=== PATIENT | female | born 1965 | race Caucasian/White ===

== ENCOUNTER 2017-11-22 08:51 | Day surgery (SDC) | payer OTHER ==
[~2017-11-22 08:51] MED LIST: Lactated Ringers 1,000 ML IV SCH; Lidocaine 2% 5 ML SDV ONE; Propofol 200 MG/20 ML SDV ONE; Sodium Chloride 0.9% 10 ML Syringe FLUSH PRN; Sodium Chloride 0.9% 2.5 ML Syringe FLUSH PRN; fentaNYL 100 MCG/2 ML SDV ONE
--- NOTE | 2017-11-22 09:30 | PCM.PREANE ---
Preanesthetic Assessment - Anesthesia/Transfusion/Family Hx Anesthesia History: Prior Anesthesia Without Reaction Family History of Anesthesia Reaction: No Transfusion History: No Prior Transfusion(s) - Review of Systems General: No Symptoms Pulmonary: No Symptoms Cardiovascular: No Symptoms Gastrointestinal: No Symptoms Neurological: No Symptoms Other: Reports: None - Physical Assessment NPO Status Date: 11/21/17 O2 Sat by Pulse Oximetry: 96 Respiratory Rate: 16 Vital Signs: Last Vital Signs Temp 36.3 C 11/22/17 09:11 Pulse 70 11/22/17 09:11 Resp 16 11/22/17 09:11 BP 155/82 H 11/22/17 09:11 Pulse Ox 96 11/22/17 09:11 Height: 1.57 m Weight: 85.275 kg ASA Class: 2 Mental Status: Alert & Oriented x3 Dentition: Reports: Normal Dentition ROM/Head Extension: Full Lungs: Clear to Auscultation, Normal Respiratory Effort Cardiovascular: Regular Rate, Regular Rhythm - Allergies Allergies/Adverse Reactions: Allergies Allergy/AdvReac Type Severity Reaction Status Date / Time morphine Allergy Rash Verified 11/19/17 08:49 - Anesthesia Plan Pre-Op Medication Ordered: None - Acknowledgements Anesthesia Type Planned: MAC Pt an Appropriate Candidate for the Planned Anesthesia: Yes Alternatives and Risks of Anesthesia Discussed w Pt/Guardian: Yes Pt/Guardian Understands and Agrees with Anesthesia Plan: Yes Additional Comments: PMH: PCOS PreAnesthesia Questionnaire HEENT History: Reports: Other (See Below) Other HEENT History: wears glasses, has lower permanent dental bridge Cardiovascular History: Reports: None Respiratory History: Reports: None Gastrointestinal History: Reports: Other (See Below) Other Gastrointestinal History: occasional heartburn- takes OTC Tums 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: Musculoskeletal History: Reports: Fracture Other Musculoskeletal History: hx of fx arm as a child Neurological History: Reports: Other (See Below) Other Neuro History: hx of motion sickness Psychiatric History: Reports: None Endocrine/Metabolic History: Reports: Obesity/BMI 30+ Hematologic History: Reports: None Immunologic History: Reports: None Oncologic (Cancer) History: Reports: None Dermatologic History: Reports: None - Past Surgical History Head Surgeries/Procedures: Reports: None HEENT Surgical History: Reports: Tonsillectomy Female Surgical History: Reports: Section - SUBSTANCE USE Smoking Status *Q: Never Smoker Recreational Drug Use History: No - HOME MEDS Home Medications: Home Meds . [No Known Home Meds] 11/19/17 [History] - CURRENT (IN HOUSE) MEDS Current Meds: Current Medications Lactated Ringer's (Ringers, Lactated) 1,000 mls @ 125 mls/hr IV ASDIRECTED VICKI Last Admin: 11/22/17 09:12 Dose: 125 mls/hr Sodium Chloride (Saline Flush) 10 ml FLUSH ASDIRECTED PRN PRN Reason: Keep Vein Open Sodium Chloride (Saline Flush) 2.5 ml FLUSH ASDIRECTED PRN PRN Reason: Keep Vein Open Sodium Chloride (Saline Flush) 10 ml FLUSH ASDIRECTED PRN PRN Reason: Keep Vein Open Sodium Chloride (Saline Flush) 2.5 ml FLUSH ASDIRECTED PRN PRN Reason: Keep Vein Open Discontinued Medications Fentanyl (Sublimaze) Confirm Administered Dose 100 mcg .ROUTE .STK-MED ONE Stop: 11/22/17 06:52 Lidocaine (Xylocaine-Mpf 2%) Confirm Administered Dose 5 ml .ROUTE .STK-MED ONE Stop: 11/22/17 06:52 Propofol (Diprivan 20 Ml) Confirm Administered Dose 400 mg .ROUTE .STK-MED ONE Stop: 11/22/17 06:52
[2017-11-22] MEDS ORDERED: Glycopyrrolate 0.2 MG/ML SDV ONE (09:47)
--- NOTE | 2017-11-22 10:34 | PCM48HPAN ---
Post Anesthesia Note - EVALUATION WITHIN 48HRS OF ANESTHETIC Vital Signs in Normal Range: Yes Patient Participated in Evaluation: Yes Respiratory Function Stable: Yes Airway Patent: Yes Cardiovascular Function Stable: Yes Hydration Status Stable: Yes Pain Control Satisfactory: Yes Nausea and Vomiting Control Satisfactory: Yes Mental Status Recovered: Yes Resp Rate: 12
--- NOTE | 2017-11-22 10:34 | PCM.POSTAN ---
POST ANESTHESIA ASSESSMENT - MENTAL STATUS Mental Status: Alert, Oriented - RESPIRATORY Respiratory Status: Respiratory Rate WNL, Airway Patent, O2 Saturation Stable - CARDIOVASCULAR CV Status: Pulse Rate WNL, Blood Pressure Stable - GASTROINTESTINAL GI Status: No Symptoms - POST OP HYDRATION Hydration Status: Adequate & Stable
--- NOTE | 2017-11-22 12:48 | PCM.OPNOTE ---
- General Post-Op/Procedure Note Date of Surgery/Procedure: 11/22/17 Operative Procedure(s): Screening colonoscopy Findings: Diverticulosis of the sigmoid colon, sigmoid colon polyp, rectal polyp Pre Op Diagnosis: Screening colonoscopy Post-Op Diagnosis: Diverticulosis of sigmoid colon, rectal polyp, sigmoid colon polyp Anesthesia Technique: [facility] [place] Surgeon: Carmelina Silva Condition: Good Free Text/Narrative:: Intake & Output 11/21/17 11/22/17 11/22/17 22:59 06:59 14:59 Intake Total 900 Balance 900
--- NOTE | 2017-11-22 14:02 | OR ---
SURGEON: BRANT MONTENEGRO MD DATE OF PROCEDURE: 11/22/2017 PREOPERATIVE DIAGNOSIS: Screening colonoscopy. POSTOPERATIVE DIAGNOSES: 1. Diverticulosis. 2. Sigmoid colon polyp. 3. Rectal polyp. PROCEDURE PERFORMED: Screening colonoscopy. ANESTHESIA: MAC. INSTRUMENT USED: Olympus colonoscope. EXTENT OF EXAM: To the cecum. PREPARATION: Good. LIMITATIONS: None. INDICATION FOR EXAMINATION: The patient is a 52-year-old female, who presents for first time screening colonoscopy. We discussed the procedure, expected perioperative course, and risks including bleeding, infection, or damage to surrounding structures including perforation. The patient verbalized understanding and wishes to proceed. PROCEDURE IN DETAIL: The patient was brought to the endoscopy suite and placed in the left lateral decubitus position. A time-out was completed verifying the patient's name, age, date of , allergies, and procedure to be performed. Monitored anesthesia care was induced and continuous oxygen was provided via nasal cannula throughout the procedure. After adequate sedation was achieved, a digital rectal exam was performed. This exam was within normal limits. A well lubricated colonoscope was inserted in the rectum and advanced under direct visualization to the level of the cecum. The cecum was identified by both visual and anatomic landmarks. Photograph was taken of the cecal cap; however, I was unable to retroflex the scope within the cecum due to looping of the scope more proximally. The scope was then fully withdrawn while examining the color, texture, anatomy, and integrity of the mucosa from the cecum to the anal canal. The patient was found to have scattered diverticula within the sigmoid colon. A 1 to 2 mm sessile polyp was noted in the distal sigmoid colon. This was removed using a cold biopsy forceps. The scope was brought into the rectum. A pedunculated 2 to 3 mm polyp was found in the very proximal rectum. This was removed using in piecemeal fashion using a cold biopsy forceps. The scope was then retroflexed and the anal canal was visualized. This appeared normal and a photograph was taken. The scope was then straightened out and removed from the patient. Cecum to anus time was 10 minutes. The patient tolerated the procedure well and was taken to PACU in stable condition. ENDOSCOPIC DIAGNOSES: 1. Diverticulosis. 2. Sigmoid colon polyp. 3. Rectal polyp. RECOMMENDATIONS: Follow up in clinic in 2 weeks. MASSIEL BURNETT /[id number] MTDD
== END 2017-11-22 10:45 | disposition home or self-care (01) ==
LOC: MW.SDS 08:51
PROVIDERS: ATTEND Surgery
DX: Z12.11 Encounter for screening for malignant neoplasm of colon (principal); D12.8 Benign neoplasm of rectum; K63.5 Polyp of colon; K57.30 Diverticulosis of large intestine without perforation or abscess without bleeding; E66.9 Obesity, unspecified; Z68.34 Body mass index [BMI] 34.0-34.9, adult; Z88.5 Allergy status to narcotic agent; Z91.048 Other nonmedicinal substance allergy status
CPT/HCPCS: 45380; 81025; J2704; J3010; J3490; J7120

== ENCOUNTER 2018-04-07 08:43 | Emergency (ER) | payer OTHER, BC ==
[2018-04-07] MEDS ORDERED: Iopamidol 755 MG/ML 200 ML Multipack Bottle IVPUSH STA (10:16)
[2018-04-07] MEDS ORDERED: Ampicillin/Sulbactam Na 3 GM in Sodium Chloride 0.9% 100 ML IV ONE ×2 (11:27→11:40)
[2018-04-07] MEDS ORDERED: Sodium Chloride 0.9% 10 ML Syringe FLUSH PRN (11:27)
[2018-04-07] MEDS ORDERED: Sodium Chloride 0.9% 2.5 ML Syringe FLUSH PRN (11:27)
--- NOTE | 2018-04-07 11:28 | EDM.PDOC ---
ED HPI GENERAL MEDICAL PROBLEM - General Chief Complaint: Skin Complaint Stated Complaint: LEFT EYE SWOLLEN Time Seen by Provider: 04/07/18 08:46 Source of Information: Reports: Patient History Limitations: Reports: No Limitations - History of Present Illness INITIAL COMMENTS - FREE TEXT/NARRATIVE: History of present illness: []Patient has 4 days of right eye swelling that is progressively worsening. Patient denies any fevers, change in vision, difficulty moving her eyes or headache. She has been using Campho-Phenique and started an old prescription of amoxicillin for previous dental infection. None of which has been helping. Patient's pain is minimal but the swelling is increasing. Review of systems: As per history of present illness and below otherwise all systems reviewed and negative. Past medical history: As per history of present illness and as reviewed below otherwise noncontributory. Surgical history: As per history of present illness and as reviewed below otherwise noncontributory. Social history: No reported history of drug or alcohol abuse. Family history: As per history of present illness and as reviewed below otherwise noncontributory. Physical exam: General: Well developed, well nourished in NAD HEENT: Atraumatic, normocephalic, pupils reactive, negative for conjunctival pallor or scleral icterus, mucous membranes moist, throat clear, neck supple, nontender, trachea midline. Lungs: Clear to auscultation, breath sounds equal bilaterally, chest nontender. Heart: S1S2, regular, negative for clicks, rubs, or JVD. Abdomen: NABS, Soft, nondistended, nontender. Negative for masses or hepatosplenomegaly. Negative for costovertebral tenderness. Pelvis: Stable nontender. Genitourinary: Deferred. Rectal: Deferred. Extremities: Atraumatic, negative for cords or calf pain. Neurovascular unremarkable. Neuro: Awake, alert, oriented. Cranial nerves II through XII unremarkable. Cerebellum unremarkable. Motor and sensory unremarkable throughout. Exam nonfocal. Skin:warm and dry Diagnostics: CT maxillofacial with contrast shows right parotitis with periorbital cellulitis Therapeutics: Unasyn 3 g IV ED Course: 11:[address] Paredes from [facility] ENT service he recommended IV antibiotics here, Augmentin and gentamicin eyedrops as an outpatient with post follow-up if she is nontoxic. Impression: Periorbital cellulitis, right parotitis Prescriptions: Augmentin, gentamicin eyedrops as directed Plan: Start antibiotics today, follow-up with ENT or primary care tomorrow if you cannot get into the clinic return here for one check. Definitive disposition and diagnosis as appropriate pending reevaluation and review of above. right eye Pain Score (Numeric/FACES): 3 - Related Data Allergies Allergy/AdvReac Type Severity Reaction Status Date / Time morphine Allergy Rash Verified 04/07/18 08:54 Home Meds: Home Meds Amoxicillin/Clavulanate K [Augmentin 875-125 MG] 1 tab PO BID #20 tablet [Rx] Gentamicin [Gentak 0.3% Ophth Oint] 3.5 gm EYELF TID #1 tube 04/07/18 [Rx] Past Medical History HEENT History: Reports: Other (See Below) Other HEENT History: wears glasses, has lower permanent dental bridge Cardiovascular History: Reports: None Respiratory History: Reports: None Gastrointestinal History: Reports: Other (See Below) Other Gastrointestinal History: occasional heartburn- takes OTC Tums Genitourinary History: Reports: None 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: Musculoskeletal History: Reports: Fracture Other Musculoskeletal History: hx of fx arm as a child Neurological History: Reports: Other (See Below) Other Neuro History: hx of motion sickness Psychiatric History: Reports: None Endocrine/Metabolic History: Reports: Obesity/BMI 30+ Hematologic History: Reports: None Immunologic History: Reports: None Oncologic (Cancer) History: Reports: None Dermatologic History: Reports: None - Infectious Disease History Infectious Disease History: Reports: Chicken Pox, Other (See Below) Other Infectious Disease History: childhood - Past Surgical History Head Surgeries/Procedures: Reports: None HEENT Surgical History: Reports: Tonsillectomy Cardiovascular Surgical History: Reports: None Respiratory Surgical History: Reports: None GI Surgical History: Reports: None Female Surgical History: Reports: Section Endocrine Surgical History: Reports: None Neurological Surgical History: Reports: None Musculoskeletal Surgical History: Reports: None Oncologic Surgical History: Reports: None Dermatological Surgical History: Reports: None Social & Family History - Family History Family Medical History: Noncontributory - Tobacco Use Smoking Status *Q: Never Smoker Second Hand Smoke Exposure: No - Caffeine Use Caffeine Use: Reports: Coffee, Soda - Recreational Drug Use Recreational Drug Use: No ED ROS GENERAL - Review of Systems Review Of Systems: ROS reveals no pertinent complaints other than HPI. ED EXAM, SKIN/RASH Exam: See Below (See history of present illness) Course - Vital Signs Last Recorded V/S: Last Vital Signs Temp 97.5 F 04/07/18 12:37 Pulse 68 04/07/18 12:37 Resp 16 04/07/18 12:37 BP 150/86 H 04/07/18 12:37 Pulse Ox 99 04/07/18 12:37 - Orders/Labs/Meds Orders: Active Orders 24 hr Category Date Time Status Max Facial Sinus w Cont [CT] Stat Exams 04/07/18 09:10 Ordered CULTURE BLOOD [BC] Stat Lab 04/07/18 11:48 Received CULTURE BLOOD [BC] Stat Lab 04/07/18 11:58 Received Blood Culture x2 Reflex Set [OM.PC] Stat Oth 04/07/18 11:21 Ordered Saline Lock Insert [OM.PC] Stat Oth 04/07/18 11:27 Ordered Meds: Medications Discontinued Medications Generic Name Dose Route Start Last Admin Trade Name Freq PRN Reason Stop Dose Admin Ampicillin Sodium/Sulbactam 100 mls @ 200 mls/hr 04/07/18 11:27 04/07/18 11: 45 Sodium 3 gm/ Sodium Chloride IV 04/07/18 11:56 Not Given ONETIME ONE Ampicillin Sodium/Sulbactam 100 mls @ 200 mls/hr 04/07/18 11:40 04/07/18 11: 51 Sodium 3 gm/ Sodium Chloride IV 04/07/18 11:56 200 mls/hr ONETIME ONE Administration Iopamidol 75 ml 04/07/18 10:16 04/07/18 10:16 Isovue Multipack-370 (76%) IVPUSH 04/07/18 10:17 75 ml ONETIME STA Administration Sodium Chloride 10 ml 04/07/18 11:27 Saline Flush FLUSH ASDIRECTED PRN Keep Vein Open Sodium Chloride 2.5 ml 04/07/18 11:27 Saline Flush FLUSH ASDIRECTED PRN Keep Vein Open Departure - Departure Time of Disposition: 12:40 Disposition: Home, Self-Care 01 Condition: Good Clinical Impression: Periorbital cellulitis of left eye, Parotitis - Discharge Information *PRESCRIPTION DRUG MONITORING PROGRAM REVIEWED*: No *COPY OF PRESCRIPTION DRUG MONITORING REPORT IN PATIENT UMA: No Prescriptions: Amoxicillin/Clavulanate K [Augmentin 875-125 MG] 1 tab PO BID #20 tablet Gentamicin [Gentak 0.3% Ophth Oint] 3.5 gm EYELF TID #1 tube Instructions: Parotitis, [id number], Cellulitis, Adult, [id number] Referrals: PCP,None [Primary Care Provider] - Forms: ED Department Discharge Additional Instructions: The following information is given to patients seen in the emergency department who are being discharged to home. This information is to outline your options for follow-up care. We provide all patients seen in our emergency department with a follow-up referral. The need for follow-up, as well as the timing and circumstances, are variable depending upon the specifics of your emergency department visit. If you don't have a primary care physician on staff, we will provide you with a referral. We always advise you to contact your personal physician following an emergency department visit to inform them of the circumstance of the visit and for follow-up with them and/or the need for any referrals to a consulting specialist. The emergency department will also refer you to a specialist when appropriate. This referral assures that you have the opportunity for follow-up care with a specialist. All of these measure are taken in an effort to provide you with optimal care, which includes your follow-up. Under all circumstances we always encourage you to contact your private physician who remains a resource for coordinating your care. When calling for follow-up care, please make the office aware that this follow-up is from your recent emergency room visit. If for any reason you are refused follow-up, please contact the [facility] Emergency Department at and asked to speak to the emergency department charge nurse. Take meds as directed follow-up with ENT tomorrow or return to ER for recheck. [facility] - ENT [facility] [place] [id number] - My Orders Last 24 Hours: My Active Orders 04/07/18 09:10 Max Facial Sinus w Cont [CT] Stat 04/07/18 11:21 Blood Culture x2 Reflex Set [OM.PC] Stat 04/07/18 11:27 Saline Lock Insert [OM.PC] Stat 04/07/18 11:48 CULTURE BLOOD [BC] Stat 04/07/18 11:58 CULTURE BLOOD [BC] Stat - Assessment/Plan Last 24 Hours: My Active Orders 04/07/18 09:10 Max Facial Sinus w Cont [CT] Stat 04/07/18 11:21 Blood Culture x2 Reflex Set [OM.PC] Stat 04/07/18 11:27 Saline Lock Insert [OM.PC] Stat 04/07/18 11:48 CULTURE BLOOD [BC] Stat 04/07/18 11:58 CULTURE BLOOD [BC] Stat
--- NOTE | 2018-04-08 19:32 | CT ---
EXAM DATE: 04/07/18 PATIENT'S AGE: 52 Patient: RICHIE WESLEY Facility: [place], [place] Site . Site : [id number] Study: CT Facial [id number] 10:19:38 AM Ordering Physician: Pierre Raphael Final Report: Indication: Right-sided periorbital swelling. Technique: Facial CT, contrast enhanced CT 75 mL Isovue 370. Coronal and sagittal reformatted images obtained Comparison: No comparison studies are available Findings: The right parotid gland is asymmetrically enlarged with asymmetric increased enhancement of the right parotid gland when compared to the left. There are multiple small round enhancing lesions in the parotid gland likely reflecting intraparotid lymph nodes, likely reactive. No discrete parotid duct stone however beam hardening artifact does limit evaluation. There is significant surrounding subcutaneous soft tissue stranding along the base of the mouth anteriorly and over the right parotid gland. There is also significant soft tissue stranding/inflammatory change in the right periorbital region. There is no postseptal inflammatory change. The orbit and globe otherwise appears intact. Extraocular muscles appear symmetric. No abscess/organized fluid collections present. Parapharyngeal fat maintained. Asymmetric multiple slightly enlarged right-sided cervical lymph nodes likely reactive. Minimal mucosal thickening ethmoid air cells mastoid air cells skull and scalp otherwise appears unremarkable. Impression: 1. Findings suggest right parotitis. No discrete parotid duct stone seen however beam hardening artifact does limit evaluation. No abscess. 2. Significant subcutaneous soft tissue stranding and inflammatory traveler changer the right parotid gland extending inferiorly and anteriorly to the base of the mouth and also significant right periorbital soft tissue swelling which is felt to represent periorbital cellulitis. No postseptal inflammatory change. No abscess. 3. Asymmetric number of mildly enlarged right cervical lymph nodes with an increased number of lymph nodes within the right parotid gland likely reactive. Please note that all CT scans at this facility use dose modulation, iterative reconstruction, and/or weight-based dosing when appropriate to reduce radiation dose to as low as reasonably achievable. Dictated by Verito Burton MD @ Apr 07 2018 10:47AM (Electronic Signature) Report Signed by Proxy. [facility]
== END 2018-04-07 12:39 | disposition home or self-care (01) ==
LOC: MW.ED 08:43
DX: L03.213 Periorbital cellulitis (principal); K11.20 Sialoadenitis, unspecified; Z88.5 Allergy status to narcotic agent
CPT/HCPCS: 36415; 70487; 87040; 96365; 99284; J0295; J7030; Q9967

== ENCOUNTER 2019-11-27 08:46 | Day surgery (SDC) | payer OTHER ==
[~2019-11-27 08:46] MED LIST changes: -Lactated Ringers 1,000 ML IV SCH; -Lidocaine 2% 5 ML SDV ONE; -Propofol 200 MG/20 ML SDV ONE; -Sodium Chloride 0.9% 10 ML Syringe FLUSH PRN; -Sodium Chloride 0.9% 2.5 ML Syringe FLUSH PRN; +ceFAZolin 2 GM in Premix Bag 1 BAG IV ONE; -fentaNYL 100 MCG/2 ML SDV ONE
[2019-11-27] MEDS ORDERED: Propofol 200 MG/20 ML SDV ONE (09:18)
[2019-11-27] MEDS ORDERED: Midazolam 1 MG/ML 2 ML SDV ONE (09:18)
[2019-11-27] MEDS ORDERED: fentaNYL 100 MCG/2 ML SDV ONE (09:18)
[2019-11-27] MEDS ORDERED: Lidocaine 2% 5 ML SDV ONE (09:18)
[2019-11-27] MEDS ORDERED: Glycopyrrolate 0.2 MG/ML SDV ONE ×2 (09:23→10:43)
--- NOTE | 2019-11-27 09:25 | PCM.PREANE ---
Preanesthetic Assessment - Anesthesia/Transfusion/Family Hx Anesthesia History: Prior Anesthesia Without Reaction Family History of Anesthesia Reaction: No Transfusion History: No Prior Transfusion(s) - Review of Systems General: No Symptoms Pulmonary: No Symptoms Cardiovascular: No Symptoms Gastrointestinal: No Symptoms Neurological: No Symptoms Other: Reports: None - Physical Assessment NPO Status Date: 11/26/19 Height: 5 ft 2 in Weight: 74.843 kg ASA Class: 2 Mental Status: Alert & Oriented x3 Airway Class: Mallampati = 2 Dentition: Reports: Normal Dentition ROM/Head Extension: Full Lungs: Clear to Auscultation, Normal Respiratory Effort Cardiovascular: Regular Rate, Regular Rhythm - Allergies Allergies/Adverse Reactions: Allergies Allergy/AdvReac Type Severity Reaction Status Date / Time cat dander Allergy Sneezing Verified 11/24/19 11:02 morphine Allergy Rash Verified 11/24/19 11:02 - Blood Blood Available: No - Anesthesia Plan Pre-Op Medication Ordered: None - Acknowledgements Anesthesia Type Planned: General Anesthesia Pt an Appropriate Candidate for the Planned Anesthesia: Yes Alternatives and Risks of Anesthesia Discussed w Pt/Guardian: Yes Pt/Guardian Understands and Agrees with Anesthesia Plan: Yes Additional Comments: PMH: PCOS, smoker PLAN: GAQ/LMA PreAnesthesia Questionnaire HEENT History: Reports: Other (See Below) Other HEENT History: wears glasses Cardiovascular History: Reports: None Respiratory History: Reports: None Gastrointestinal History: Reports: Colon Polyp Other Gastrointestinal History: occasional heartburn- takes OTC Tums Genitourinary History: Reports: None 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: Polycystic 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, Musculoskeletal History: Reports: Fracture Other Musculoskeletal History: hx of fx wrist Neurological History: Reports: Other (See Below) Other Neuro History: hx of motion sickness Psychiatric History: Reports: None Endocrine/Metabolic History: Reports: Obesity/BMI 30+ Hematologic History: Reports: None Immunologic History: Reports: None Oncologic (Cancer) History: Reports: None Dermatologic History: Reports: None - Infectious Disease History Infectious Disease History: Reports: Chicken Pox, Other (See Below) Other Infectious Disease History: childhood - Past Surgical History Head Surgeries/Procedures: Reports: None HEENT Surgical History: Reports: Tonsillectomy Cardiovascular Surgical History: Reports: None Respiratory Surgical History: Reports: None GI Surgical History: Reports: Colonoscopy Female Surgical History: Reports: Section, Tubal Ligation Endocrine Surgical History: Reports: None Neurological Surgical History: Reports: None Musculoskeletal Surgical History: Reports: None Oncologic Surgical History: Reports: None Dermatological Surgical History: Reports: None - SUBSTANCE USE Smoking Status *Q: Never Smoker Tobacco Use Within Last Twelve Months: No Recreational Drug Use History: No - HOME MEDS Home Medications: Home Meds Ibuprofen 800 mg PO ASDIRECTED PRN 11/05/19 [History] - CURRENT (IN HOUSE) MEDS Current Meds: Current Medications Discontinued Medications Cefazolin Sodium/Dextrose 2 gm (/ Premix) 50 mls @ 100 mls/hr IV ONETIME ONE Stop: 11/24/19 11:10
[2019-11-27] MEDS ORDERED: Bupivacaine 0.5% 30 ML SDV ONE (09:58)
[2019-11-27] MEDS ORDERED: Lactated Ringers 1,000 ML IV SCH (10:00)
[2019-11-27] MEDS ORDERED: Octyl 2-Cyanoacrylate 1 Tube ONE (10:55)
--- NOTE | 2019-11-27 11:17 | PCM.OPNOTE ---
- General Post-Op/Procedure Note Date of Surgery/Procedure: 11/27/19 Operative Procedure(s): Excision left upper extremity mass Findings: 5.5 x 4.5 x 1 cm left upper medial extremity lipoma Pre Op Diagnosis: lipoma Post-Op Diagnosis: same Anesthesia Technique: General LMA Primary Surgeon: Carmelina Silva Pathology: lipoma Fluid Replacement, Intraop: 700 EBL in mLs: 3 Condition: Good
--- NOTE | 2019-11-27 11:29 | PCM.POSTAN ---
POST ANESTHESIA ASSESSMENT - MENTAL STATUS Mental Status: Alert, Oriented - VITAL SIGNS Vital Signs: Last Vital Signs Temp 36.2 C 11/27/19 11:05 Pulse 78 11/27/19 11:25 Resp 13 11/27/19 11:25 BP 122/77 11/27/19 11:25 Pulse Ox 97 11/27/19 11:25 - RESPIRATORY Respiratory Status: Respiratory Rate WNL, Airway Patent, O2 Saturation Stable - CARDIOVASCULAR CV Status: Pulse Rate WNL, Blood Pressure Stable - GASTROINTESTINAL GI Status: No Symptoms - PAIN Pain Score: 0 - POST OP HYDRATION Hydration Status: Adequate & Stable
--- NOTE | 2019-11-27 11:56 | PCM48HPAN ---
Post Anesthesia Note - EVALUATION WITHIN 48HRS OF ANESTHETIC Vital Signs in Normal Range: Yes Patient Participated in Evaluation: Yes Respiratory Function Stable: Yes Airway Patent: Yes Cardiovascular Function Stable: Yes Hydration Status Stable: Yes Pain Control Satisfactory: Yes Nausea and Vomiting Control Satisfactory: Yes Mental Status Recovered: Yes Vital Signs: Last Vital Signs Temp 36.2 C 11/27/19 11:05 Pulse 78 11/27/19 11:25 Resp 13 11/27/19 11:25 BP 122/77 11/27/19 11:25 Pulse Ox 97 11/27/19 11:25 - COMMENTS/OBSERVATIONS Free Text/Narrative:: Patient denies complaints and states she is ready to go home. States pain is under control and no nausea.
--- NOTE | 2019-11-27 17:40 | OR ---
SURGEON: CARMELINA SILVA MD DATE OF PROCEDURE: 11/27/2019 PREOPERATIVE DIAGNOSIS: Left upper extremity mass. POSTOPERATIVE DIAGNOSIS: Left upper extremity mass. PROCEDURE PERFORMED: Excision of left upper extremity mass. PRIMARY SURGEON: Carmelina Silva MD ANESTHESIA: General LMA. FLUIDS: 700 mL of crystalloid. ESTIMATED BLOOD LOSS: 3 mL. FINDINGS: 5.5 x 4.5 x 1 cm left upper extremity lipoma. This was located proximal and medial. COMPLICATIONS: None. INDICATIONS: The patient is a 54-year-old female who has had an enlarging subcutaneous mass on the left upper extremity. Imaging has shown this to be a questionable lipoma. Because it is changing, the patient and I discussed the need for excision. I explained the procedure; expected perioperative course; and risks including bleeding, infection, or damage to surrounding structures. She verbalized understanding and wishes to proceed. PROCEDURE IN DETAIL: The patient was brought into the OR and placed on the OR table in supine position with her left arm on an armboard. A time-out was completed verifying the patient's name, age, date of , allergies, and procedure to be performed. General LMA anesthesia was induced. The left arm was prepped and draped in usual standard fashion. The mass was located just distal to the axilla on the proximal medial left upper extremity. This had been marked in the preoperative area. I anesthetized the area with 0.5% Marcaine plain. A 15 blade was used to make a 4 cm incision over the top of the mass. The incision was placed longitudinally along the arm. Cautery was used to dissect down to level of the subcutaneous fat. I then elevated the skin flap and dissected through the subcutaneous tissue and immediately encountered a bulbous appearing mass consistent with that of a lipoma. I then bluntly dissected around this. I was able to separate the lipoma from the surrounding subcutaneous fat. The posterior aspect of the lipoma abutted the muscular fascia. Using gentle blunt dissection and sharp dissection with the Metzenbaum scissors, I was able to separate this without damaging any of the surrounding tissues. The mass was then placed on the back table and measured. It measured 5.5 x 4.5 x 1 cm in size. There were no margins associated with this case. The mass was then sent to pathology. I inspected my operative field. Hemostasis was achieved with electrocautery. The wound was then closed with multiple layers of interrupted 3- 0 Vicryl suture within the subcutaneous fat layer closing the space left by the lipoma. I then closed the subcutaneous fat immediately adjacent to the skin with interrupted 3-0 Vicryl sutures as well. The skin was then closed with a running 4-0 Monocryl stitch. Dermabond and a sterile dressing were applied. The patient tolerated the procedure well and was extubated and transferred to the PACU in stable condition. All counts were complete and correct at the end of the case. MASSIEL BURNETT /[id number]
== END 2019-11-27 12:09 | disposition home or self-care (01) ==
LOC: MW.SDS 08:46
PROVIDERS: ATTEND Surgery
DX: D17.22 Benign lipomatous neoplasm of skin and subcutaneous tissue of left arm (principal); U07.1 COVID-19; E66.9 Obesity, unspecified; F17.210 Nicotine dependence, cigarettes, uncomplicated; Z88.5 Allergy status to narcotic agent; Z68.31 Body mass index [BMI] 31.0-31.9, adult
CPT/HCPCS: 13121; 24071; 81025; A9270; J2001; J2250; J2704; J3010; J3490; J7120; 00400; 88304

== ENCOUNTER 2022-06-15 15:20 | Emergency (ER) | payer BC ==
[2022-06-15] MEDS: Ondansetron 4 MG/2 ML SDV IVPUSH ONE (16:18)
[2022-06-15] MEDS: Sodium Chloride 0.9% 1,000 ML IV ONE (16:18)
[2022-06-15] MEDS: Sodium Chloride 0.9% 2.5 ML Syringe FLUSH PRN (16:19)
[2022-06-15] MEDS: Sodium Chloride 0.9% 10 ML Syringe FLUSH PRN (16:19)
[2022-06-15 16:52] LABS: POTASSIUM,K 2.8 mmol/L (3.5-5.1)
[2022-06-15] MEDS: Potassium Chloride 10% 20 MEQ/15 ML Soln 15 ML UD Cup PO ONE (17:28)
== END 2022-06-15 18:10 | disposition home or self-care (01) ==
LOC: MW.ED 15:20
DX: R42 Dizziness and giddiness (principal); I10 Essential (primary) hypertension; R11.2 Nausea with vomiting, unspecified; E66.9 Obesity, unspecified; Z68.31 Body mass index [BMI] 31.0-31.9, adult; Z88.5 Allergy status to narcotic agent; Z91.048 Other nonmedicinal substance allergy status
CPT/HCPCS: 36415; 80053; 83690; 84484; 85025; 93005; 96361; 96374; 99284; A9270; J2405; J3490; J7030; 93010

== ENCOUNTER 2022-06-16 22:27 | Emergency (ER) | payer BC | END 2022-06-16 22:34 | disposition left against medical advice (07) | LOC: MW.ED 22:27 | DX: Z53.21 Procedure and treatment not carried out due to patient leaving prior to being seen by health care provider (principal) ==